=== PATIENT | female | born 1980 | race Caucasian/White ===

== ENCOUNTER 2022-03-18 12:43 | Day surgery (SDC) | payer SELFPAY ==
[~2022-03-18] VITALS: Ht 170.2 cm; Wt 153.1 kg
[~2022-03-18 12:43] MED LIST: FLOMAX 0.40.4 MG/CAP PO; LORTAB 5/500 501 TAB PO; NORCO 325 MG-51 TAB PO
[2022-03-18 13:25] VITALS: BP 149/86; PULSE 97; TEMP 98.7
[2022-03-18] MEDS ORDERED: NORCO 325 MG-51 TAB PO (16:33)
[2022-03-18] MEDS ORDERED: FLOMAX 0.40.4 MG/CAP PO (16:33)
[2022-03-18 17:18] VITALS: BP 144/77; PULSE 81
--- NOTE | 2022-03-18 17:18 | NUR ---
Patient returns to room 6 per cart from PACU accompanied by Bryan SANCHEZ and is awake and alert. IV fluids infusing and site is free of redness. Siderails up x2 and call light in reach. Spouse in room.
[2022-03-18 17:33] VITALS: BP 138/82; PULSE 80
[2022-03-18 17:48] VITALS: BP 145/88; PULSE 84
[2022-03-18 18:03] VITALS: BP 140/82; PULSE 84
--- NOTE | 2022-03-18 18:11 | NUR ---
1745 AWAKE, ALERT. PATIENT EATING LARGE COOKIE BROUGHT BY . NO NAUSEA REPORTED AT THIS TIME. 1750 DISCHARGE INSTRUCTIONS THOROUGHLY REVIEWED. PATIENT AND VERBALIZE UNDERSTANDING. COPY PROVIDED IN DISCHARGE FOLDER. 175 PO PAIN PIL GIVEN PER PATIENT REQUEST PRIOR TO RIDE HOME. 181 AMBULATES TO BATHROOM. VOIDS WITHOUT DIFFICULTY. 181 SITS IN CHAIR. DRESSES SELF
[2022-03-18 22:33] VITALS: BP 145/85; PULSE 77; TEMP 97.9
== END 2022-03-18 18:22 | disposition home or self-care (01) ==
LOC: SDCO 12:43
DX: N20.2 Calculus of kidney with calculus of ureter (principal); E66.9 Obesity, unspecified; F17.210 Nicotine dependence, cigarettes, uncomplicated
CPT/HCPCS: C1769; C2617; J0690; J1100; J1885; J2405; J2704; J3010; J7120

== ENCOUNTER 2022-06-06 18:15 | Emergency (ER) | payer SELFPAY ==
[~2022-06-06] VITALS: Ht 170.2 cm; Wt 153.2 kg
[2022-06-06 18:34] VITALS: TEMP 97.8
[2022-06-06 18:53] LABS: BASO # 0.1 K/mm3 (0.0-0.2); BASO % 0.5 % (0.0-2.0); EOS % 0.1 % (0.0-4.0); GRAN # 7.8 K/mm3 (1.4-6.5); GRAN % 72.8 % (42.2-75.2); HEMATOCRIT 45.2 % (37.0-47.0); HEMOGLOBIN 14.6 g/dl (12.5-16.0); LYMPH # 2.1 K/mm3 (1.2-3.4); LYMPH % 19.5 % (20.0-51.0); MEAN CELL VOLUME 83 fl (80.0-100.0); MEAN CORPUSCULAR HEMOGLOBIN 27 pg (27-31); MEAN CORPUSCULAR HGB CONC 32 g/dl (33.0-37.0); MONO # 0.7 K/mm3 (0.1-0.6); MONO % 6.5 % (1.7-9.3); PLATELET COUNT 298 K/mm3 (130-400); RED BLOOD COUNT 5.46 M/mm3 (4.10-5.30); REDCELL DISTRIBUTION WIDTH-CV 14.8 % (11.5-14.5)
[2022-06-06 19:18] LABS: BILIRUBIN,TOTAL 0.4 mg/dL (0.2-1.2); C-REACTIVE PROTEIN 0.66 mg/dL (0.00-0.50); CALCIUM 9.1 mg/dL (8.4-10.2); CREATININE, serum 0.87 mg/dL (0.57-1.11); POTASSIUM 4.2 mmol/L (3.5-4.5); TOTAL PROTEIN 7.3 gm/dL (6.2-8.1)
[2022-06-06 20:01] LABS: COLLECTION METHOD CLEAN CATCH
[2022-06-06 20:06] LABS: PH 5.5 (5.0-8.5); URINE APPEARANCE Hazy (CLEAR/HAZY); URINE COLOR Yellow (YELLOW); URINE GLUCOSE Negative (NEGATIVE); URINE PROTEIN(semi-quant) 1+ (NEGATIVE)
[2022-06-06 20:07] LABS: URINE BLOOD 2+ (NEGATIVE); URINE KETONE Negative (NEGATIVE); URINE NITRATE Positive (NEGATIVE); URINE UROBILINOGEN 0.2 E.U/dL (0.2-1.0)
[2022-06-06 20:08] LABS: MUCOUS Present (NOT PRESENT); URINE BACTERIA Occasional /hpf (NONE SEEN)
[2022-06-06] MEDS ORDERED: OMNICEF 300MG300 MG PO (21:28)
[2022-06-06 21:44] VITALS: BP 127/69; PULSE 71
== END 2022-06-06 21:44 | disposition home or self-care (01) ==
LOC: COL.ER 18:15
PROVIDERS: Nurse Practitioner
DX: N13.2 Hydronephrosis with renal and ureteral calculous obstruction (principal); N83.202 Unspecified ovarian cyst, left side; N83.201 Unspecified ovarian cyst, right side; N39.0 Urinary tract infection, site not specified; F17.200 Nicotine dependence, unspecified, uncomplicated; Z87.442 Personal history of urinary calculi; Z88.0 Allergy status to penicillin; Z28.310 Unvaccinated for COVID-19
CPT/HCPCS: J0696; J1170; J1885; J2405; J7030; Q9967